=== PATIENT | female | born 1955 | race Asian ===

== ENCOUNTER 2021-05-09 22:57 | Inpatient (IN) | payer OTHER ==
[~2021-05-09] VITALS: Ht 149.9 cm; Wt 44.6 kg
[~2021-05-09 22:57] MED LIST: LAMO100 PO; LEVE500T20 PO
[2021-05-09] MEDS ORDERED: 0.9% SODIUM CHLORIDE 10 ML SYRINGE IVP PRN (23:45)
[2021-05-10 00:08] LABS: GLUCOMETER DEV NAME(LOC) ERT.5; GLUCOSE,POINT OF CARE 125 MG/DL (70-110)
[2021-05-10 00:29] LABS: BASOPHILS % (AUTO) 0.7 % (0.0-2.0); EOSINOPHILS % (AUTO) 2.3 % (1.0-6.0); HEMATOCRIT 36.6 % (36-46); HEMOGLOBIN 12.1 g/dL (12.0-16.0); LYMPHOCYTES # (AUTO) 1.8 K/uL (1.0-4.8); LYMPHOCYTES % (AUTO) 27.9 % (22.0-44.0); MEAN CORPUSCULAR HGB CONC 33.1 G/dL (31.0-37.0); MEAN CORPUSCULAR VOLUME 97 fL (80-100); MONOCYTES # (AUTO) 0.4 K/uL (0.1-1.0); MONOCYTES % (AUTO) 6.2 % (2.0-9.0); NEUTROPHILS # (AUTO) 4.1 K/uL (1.8-7.7); NEUTROPHILS % (AUTO) 62.9 % (40.0-70.0); PLATELET COUNT (AUTO) 299 K/uL (150-450); RED BLOOD CELL COUNT(AUTO) 3.77 MIL/uL (4.00-5.20); RED CELL DISTRIBUTION WIDTH 12.9 % (11.5-14.5)
[2021-05-10 00:49] LABS: B-TYPE NATRIURETIC PEPTIDE 47 pg/mL (0-100); INR 0.9 (0.9-1.1); PROTHROMBIN TIME 10.1 SEC (9.4-11.6)
[2021-05-10 00:52] LABS: ALANINE AMINOTRANSFERASE 17 U/L (12-78); ALBUMIN 3.9 g/dL (3.4-5.0); ALKALINE PHOSPHATASE 89 U/L (46-116); ANION GAP 8 mmol/L (8-16); ASPARTATE AMINOTRANSFERASE 18 U/L (15-37); BILIRUBIN,TOTAL 0.2 mg/dL (0.1-1.0); CARBON DIOXIDE 29 mmol/L (22-29); CHLORIDE 104 mmol/L (98-107); CREATINE KINASE, TOTAL ONLY 71 U/L (26-192); CREATININE 0.78 mg/dL (0.60-1.30); GLOMERULAR FILTR. RATE CALC > 60 mL/min (>60); GLUCOSE,RANDOM 129 mg/dL (70-110); POTASSIUM 3.6 mmol/L (3.5-5.1); SODIUM SERUM 141 mmol/L (136-145); TOTAL PROTEIN, SERUM 7.6 g/dL (6.4-8.2); UREA NITROGEN, BLOOD 10 mg/dL (7-18)
[2021-05-10 00:54] LABS: LACTIC ACID 1.1 mmol/L (0.4-2.0)
[2021-05-10] MEDS ORDERED: MECLIZINE HCL 25 MG TABLET PO ONE (01:30)
[2021-05-10] MEDS ORDERED: CloNIDine HCL 0.1 MG TABLET PO ONE (01:45)
[2021-05-10 01:58] LABS: APPEARANCE,URINE CLEAR (CLEAR); BILIRUBIN,URINE NEGATIVE (NEGATIVE); GLUCOSE, URINE (UA) NEGATIVE (NEGATIVE); KETONES,URINE NEGATIVE (NEGATIVE); LEUKOCYTE ESTERASE ,URINE NEGATIVE (NEGATIVE); NITRATE,URINE NEGATIVE (NEGATIVE); OCCULT BLOOD,URINE NEGATIVE (NEGATIVE); PROTEIN,URINE NEGATIVE (NEGATIVE); UROBILINOGEN,URINE 0.2 mg/dL (<=1.0)
[2021-05-10 02:14] LABS: COVID AG,FIA SOURCE NASOPHARYNGEAL
[2021-05-10 02:32] LABS: AMPHET/METH SCREEN,URINE NEGATIVE (NEGATIVE); BARBITURATE SCREEN, URINE NEGATIVE (NEGATIVE); BENZODIAZEPINES SCREEN,URINE NEGATIVE (NEGATIVE); CANNABINOID SCREEN,URINE NEGATIVE (NEGATIVE); COCAINE SCREEN,URINE NEGATIVE (NEGATIVE); METHADONE SCREEN, URINE NEGATIVE (NEGATIVE); OPIATE SCREEN,URINE NEGATIVE (NEGATIVE)
[2021-05-10 02:43] LABS: PHENCYCLIDINE SCREEN,URINE NEGATIVE (NEGATIVE)
[2021-05-10] MEDS ORDERED: SODIUM CHLORIDE 0.9% 1,000 ML IV SCH (02:45)
[2021-05-10] MEDS ORDERED: HydrALAZINE HCL 20 MG/ML VIAL IVP PRN (02:45)
[2021-05-10] MEDS: LISINOPRIL 10 MG TABLET PO SCH (07:29)
[2021-05-10] MEDS: LevETIRAcetam 500 MG TABLET PO SCH ×2 (08:06→22:03)
[2021-05-10 08:55] VITALS: BP 196/93
[2021-05-10] MEDS: LamoTRIgine 100 MG TABLET PO SCH ×2 (10:09→22:03)
[2021-05-10 12:04] VITALS: BP 138/89
[2021-05-10 15:56] VITALS: BP 147/75
[2021-05-10 20:09] VITALS: BP 108/67
[2021-05-11] VITALS (7 sets, daily range): BP systolic 105–146; BP diastolic 48–90
[2021-05-11] MEDS: LevETIRAcetam 500 MG TABLET PO SCH ×2 (10:19→21:02)
[2021-05-11] MEDS: LISINOPRIL 10 MG TABLET PO SCH (10:19)
[2021-05-11] MEDS: LamoTRIgine 100 MG TABLET PO SCH ×2 (10:20→21:02)
[2021-05-11] MEDS ORDERED: BENZOCAINE/MENTHOL/ZINC CL 20% 11.9 GM GEL TP PRN (20:15)
[2021-05-11] MEDS ORDERED: MECLIZINE HCL 25 MG TABLET PO PRN (21:15)
[2021-05-12 03:57] VITALS: BP 120/53
[2021-05-12 08:07] VITALS: BP 154/82
[2021-05-12] MEDS: LevETIRAcetam 500 MG TABLET PO SCH ×2 (09:34→21:39)
[2021-05-12] MEDS: LamoTRIgine 100 MG TABLET PO SCH ×2 (09:34→21:39)
[2021-05-12] MEDS: LISINOPRIL 10 MG TABLET PO SCH (09:34)
[2021-05-12] MEDS ORDERED: ACETAMINOPHEN 500 MG TABLET PO PRN (11:15)
[2021-05-12 11:41] VITALS: BP 134/64
[2021-05-12 15:53] VITALS: BP 121/58
[2021-05-12 20:04] VITALS: BP 141/67
[2021-05-12] MEDS: DOCUSATE SODIUM 100 MG CAPSULE PO SCH (21:39)
[2021-05-12 23:57] VITALS: BP 113/59
[2021-05-13 04:49] VITALS: BP 124/69
[2021-05-13 07:25] VITALS: BP 135/83
[2021-05-13] MEDS ORDERED: MECL-160 PO (07:26)
[2021-05-13] MEDS ORDERED: DOCU-119 PO (07:26)
[2021-05-13] MEDS ORDERED: LISI-893 PO (07:26)
[2021-05-13] MEDS: DOCUSATE SODIUM 100 MG CAPSULE PO SCH (08:20)
[2021-05-13] MEDS: LISINOPRIL 10 MG TABLET PO SCH (08:20)
[2021-05-13] MEDS: LamoTRIgine 100 MG TABLET PO SCH (08:20)
[2021-05-13] MEDS: LevETIRAcetam 500 MG TABLET PO SCH (08:20)
== END 2021-05-13 11:05 | disposition home health service (06) | DRG 71 ==
LOC: EMS 22:59 → 5S 05-10 08:03
PROVIDERS: ADMIT Internal Medicine Geriatric Medicine; ATTEND Internal Medicine Geriatric Medicine
DX: G93.49 Other encephalopathy (principal); F31.31 Bipolar disorder, current episode depressed, mild; I16.1 Hypertensive emergency; E44.0 Moderate protein-calorie malnutrition; Z68.1 Body mass index [BMI] 19.9 or less, adult; G40.209 Localization-related (focal) (partial) symptomatic epilepsy and epileptic syndromes with complex partial seizures, not intractable, without status epilepticus; G93.0 Cerebral cysts; I10 Essential (primary) hypertension; R73.9 Hyperglycemia, unspecified; R42 Dizziness and giddiness; Z20.822 Contact with and (suspected) exposure to COVID-19; D64.9 Anemia, unspecified; Z91.19 Patient's noncompliance with other medical treatment and regimen; Z96.82 Presence of neurostimulator
CPT/HCPCS: 70450; 71045; 72125; 80053; 81003; 82140; 82550; 82962; 83036; 83605; 83880; 84484; 85025; 85610; 85730; 87040; 87081; 93005; 95816; 97116; 97162; 97530; 99285; J7030; 36415-L1; 36415-TC

== ENCOUNTER 2021-05-16 01:44 | Inpatient (IN) | payer OTHER ==
[~2021-05-16] VITALS: Ht 149.9 cm; Wt 45.5 kg
[~2021-05-16 01:44] MED LIST changes: +DOCU-119 PO; +LISI-893 PO; +MECL-160 PO
[2021-05-16] MEDS ORDERED: ONDANSETRON HCL 4 MG/2 ML VIAL IVP ONE (02:00)
[2021-05-16] MEDS ORDERED: LORazepam 2 MG/ML VIAL IVP ONE (02:00)
[2021-05-16] MEDS ORDERED: SODIUM CHLORIDE 0.9% 500 ML IV ONE ×2 (02:00→02:01)
[2021-05-16] MEDS ORDERED: SCOPOLAMINE HYDROBROMIDE 1 MG/72 HOUR PATCH TD ONE (02:00)
[2021-05-16] MEDS ORDERED: MECLIZINE HCL 25 MG TABLET PO ONE (02:00)
[2021-05-16] MEDS ORDERED: MECLIZINE HCL 25 MG TABLET ONE (02:01)
[2021-05-16 02:27] LABS: HEMATOCRIT 39.5 % (36-46); MEAN CORPUSCULAR HEMOGLOBIN 31.8 pg (26.0-34.0); MEAN CORPUSCULAR HGB CONC 32.9 G/dL (31.0-37.0); MEAN CORPUSCULAR VOLUME 97 fL (80-100); RED BLOOD CELL COUNT(AUTO) 4.09 MIL/uL (4.00-5.20)
[2021-05-16 02:28] LABS: BASOPHILS % (AUTO) 0.4 % (0.0-2.0); EOSINOPHILS % (AUTO) 0.3 % (1.0-6.0); LYMPHOCYTES # (AUTO) 1.4 K/uL (1.0-4.8); LYMPHOCYTES % (AUTO) 15.3 % (22.0-44.0); MONOCYTES # (AUTO) 0.3 K/uL (0.1-1.0); MONOCYTES % (AUTO) 3.9 % (2.0-9.0); NEUTROPHILS # (AUTO) 7.1 K/uL (1.8-7.7); NEUTROPHILS % (AUTO) 80.1 % (40.0-70.0); PLATELET COUNT (AUTO) 318 K/uL (150-450); RED CELL DISTRIBUTION WIDTH 13.1 % (11.5-14.5)
[2021-05-16 02:33] LABS: ANION GAP 8 mmol/L (8-16); CALCIUM, TOTAL 9.5 mg/dL (8.8-10.5); CARBON DIOXIDE 30 mmol/L (22-29); CHLORIDE 103 mmol/L (98-107); CREATININE 0.85 mg/dL (0.60-1.30); GLOMERULAR FILTR. RATE CALC > 60 mL/min (>60); GLUCOSE,RANDOM 143 mg/dL (70-110); POTASSIUM 4.1 mmol/L (3.5-5.1); SODIUM SERUM 141 mmol/L (136-145); UREA NITROGEN, BLOOD 16 mg/dL (7-18)
[2021-05-16] MEDS ORDERED: ONDANSETRON HCL 4 MG/2 ML VIAL IVP PRN ×2 (03:45→09:30)
[2021-05-16] MEDS ORDERED: ACETAMINOPHEN 325 MG TABLET PO PRN ×2 (03:45→09:30)
[2021-05-16] MEDS ORDERED: 0.9% SODIUM CHLORIDE 10 ML SYRINGE IVP PRN (03:45)
[2021-05-16 08:00] VITALS: BP 116/76
[2021-05-16] MEDS ORDERED: MECLIZINE HCL 25 MG TABLET PO PRN (09:30)
[2021-05-16 15:33] VITALS: BP 100/59
[2021-05-16] MEDS: LamoTRIgine 100 MG TABLET PO SCH (20:01)
[2021-05-16] MEDS: DOCUSATE SODIUM 100 MG CAPSULE PO SCH (20:01)
[2021-05-16] MEDS: LevETIRAcetam 500 MG TABLET PO SCH (20:01)
[2021-05-16 20:36] VITALS: BP 115/52
[2021-05-17 05:30] VITALS: BP 126/55
[2021-05-17] MEDS: LamoTRIgine 100 MG TABLET PO SCH ×2 (08:08→20:37)
[2021-05-17] MEDS: DOCUSATE SODIUM 100 MG CAPSULE PO SCH ×2 (08:09→20:37)
[2021-05-17] MEDS: LevETIRAcetam 500 MG TABLET PO SCH ×2 (08:09→20:38)
[2021-05-17 08:19] VITALS: BP 115/74
[2021-05-17] MEDS ORDERED: LISINOPRIL 10 MG TABLET PO SCH (09:00)
[2021-05-17] MEDS ORDERED: ENOXAPARIN SODIUM 40 MG/0.4 ML PF SYRINGE SQ SCH (09:00)
[2021-05-17] MEDS ORDERED: PANTOPRAZOLE SODIUM 40 MG DR TABLET PO SCH (09:00)
[2021-05-17 15:10] LABS: COVID AG,FIA SOURCE NASAL SWAB
== END 2021-05-17 21:10 | DRG 149 ==
LOC: EMS 01:44 → 6N 05:00
PROVIDERS: ADMIT Internal Medicine Geriatric Medicine; ATTEND Internal Medicine Geriatric Medicine
DX: R42 Dizziness and giddiness (principal); F31.31 Bipolar disorder, current episode depressed, mild; R26.9 Unspecified abnormalities of gait and mobility; I10 Essential (primary) hypertension; K59.00 Constipation, unspecified; Z20.822 Contact with and (suspected) exposure to COVID-19; G40.909 Epilepsy, unspecified, not intractable, without status epilepticus; D49.6 Neoplasm of unspecified behavior of brain
CPT/HCPCS: 80048; 85025; 97116; 97162; 97165; 97530; 97535; 99285; J1650; J2060; J2405; J7040

== ENCOUNTER 2021-05-17 21:00 | Inpatient (IN) | payer MEDICARE, MEDICAID ==
[~2021-05-17] VITALS: Ht 149.9 cm; Wt 42.6 kg
[2021-05-17] MEDS ORDERED: HALOPERIDOL 5 MG TABLET PO PRN (21:45)
[2021-05-17] MEDS ORDERED: ZOLPIDEM TARTRATE 10 MG TABLET PO PRN (21:45)
[2021-05-17 21:58] VITALS: BP 141/72
[2021-05-18 06:32] LABS: BASOPHILS % (AUTO) 0.6 % (0.0-2.0); EOSINOPHILS % (AUTO) 1.2 % (1.0-6.0); HEMATOCRIT 35.1 % (36-46); HEMOGLOBIN 11.6 g/dL (12.0-16.0); LYMPHOCYTES # (AUTO) 2.1 K/uL (1.0-4.8); MEAN CORPUSCULAR HEMOGLOBIN 32.1 pg (26.0-34.0); MEAN CORPUSCULAR HGB CONC 33.1 G/dL (31.0-37.0); MEAN CORPUSCULAR VOLUME 97 fL (80-100); MONOCYTES # (AUTO) 0.7 K/uL (0.1-1.0); MONOCYTES % (AUTO) 7.6 % (2.0-9.0); NEUTROPHILS # (AUTO) 6.5 K/uL (1.8-7.7); NEUTROPHILS % (AUTO) 68.6 % (40.0-70.0); PLATELET COUNT (AUTO) 338 K/uL (150-450); RED BLOOD CELL COUNT(AUTO) 3.62 MIL/uL (4.00-5.20); RED CELL DISTRIBUTION WIDTH 12.7 % (11.5-14.5)
[2021-05-18 06:59] LABS: ALANINE AMINOTRANSFERASE 21 U/L (12-78); ALBUMIN 3.2 g/dL (3.4-5.0); ALKALINE PHOSPHATASE 105 U/L (46-116); ANION GAP 7 mmol/L (8-16); ASPARTATE AMINOTRANSFERASE 20 U/L (15-37); BILIRUBIN,TOTAL 0.4 mg/dL (0.1-1.0); CALCIUM, TOTAL 9.4 mg/dL (8.8-10.5); CARBON DIOXIDE 31 mmol/L (22-29); CHLORIDE 98 mmol/L (98-107); CREATININE 0.77 mg/dL (0.60-1.30); GLOMERULAR FILTR. RATE CALC > 60 mL/min (>60); GLUCOSE,RANDOM 103 mg/dL (70-110); SODIUM SERUM 136 mmol/L (136-145); TOTAL PROTEIN, SERUM 7.4 g/dL (6.4-8.2); UREA NITROGEN, BLOOD 10 mg/dL (7-18)
[2021-05-18 08:00] VITALS: BP 138/93
[2021-05-18] MEDS: LamoTRIgine 100 MG TABLET PO SCH ×4 (09:15→17:11)
[2021-05-18] MEDS: LISINOPRIL 10 MG TABLET PO SCH (09:15)
[2021-05-18] MEDS: PANTOPRAZOLE SODIUM 40 MG DR TABLET PO SCH (09:15)
[2021-05-18] MEDS: DOCUSATE SODIUM 100 MG CAPSULE PO SCH ×2 (09:15→17:11)
[2021-05-18] MEDS: LevETIRAcetam 500 MG TABLET PO SCH ×2 (09:15→17:11)
[2021-05-18] MEDS: RisperiDONE 1 MG TABLET PO SCH ×2 (10:50→17:11)
[2021-05-18 16:00] VITALS: BP 98/60
[2021-05-18 19:06] LABS: COVID AG,FIA SOURCE NASAL SWAB
[2021-05-19 00:15] VITALS: BP 119/76
[2021-05-19] MEDS: LORazepam 1 MG TABLET PO PRN (00:20)
[2021-05-19 08:00] VITALS: BP 132/60
[2021-05-19] MEDS: PANTOPRAZOLE SODIUM 40 MG DR TABLET PO SCH (08:23)
[2021-05-19] MEDS: LevETIRAcetam 500 MG TABLET PO SCH ×2 (08:23→16:14)
[2021-05-19] MEDS: DOCUSATE SODIUM 100 MG CAPSULE PO SCH ×2 (08:23→16:14)
[2021-05-19] MEDS: RisperiDONE 1 MG TABLET PO SCH ×2 (08:23→16:14)
[2021-05-19] MEDS: LamoTRIgine 100 MG TABLET PO SCH ×2 (08:23→16:14)
[2021-05-19] MEDS: LISINOPRIL 10 MG TABLET PO SCH (08:23)
[2021-05-19 09:06] VITALS: BP 138/73
[2021-05-19 16:00] VITALS: BP 131/75
[2021-05-20 02:45] VITALS: BP 128/70
[2021-05-20] MEDS: LamoTRIgine 100 MG TABLET PO SCH ×2 (08:19→16:17)
[2021-05-20] MEDS: LISINOPRIL 10 MG TABLET PO SCH (08:19)
[2021-05-20] MEDS: DOCUSATE SODIUM 100 MG CAPSULE PO SCH ×2 (08:19→16:17)
[2021-05-20] MEDS: LevETIRAcetam 500 MG TABLET PO SCH ×2 (08:19→16:17)
[2021-05-20] MEDS: PANTOPRAZOLE SODIUM 40 MG DR TABLET PO SCH (08:19)
[2021-05-20] MEDS: RisperiDONE 1 MG TABLET PO SCH ×2 (08:19→16:17)
[2021-05-20 08:57] VITALS: BP 110/60
[2021-05-20 12:49] LABS: APPEARANCE,URINE CLEAR (CLEAR); BILIRUBIN,URINE NEGATIVE (NEGATIVE); GLUCOSE, URINE (UA) NEGATIVE (NEGATIVE); KETONES,URINE 15 mg/dL (NEGATIVE); LEUKOCYTE ESTERASE ,URINE NEGATIVE (NEGATIVE); NITRATE,URINE NEGATIVE (NEGATIVE); OCCULT BLOOD,URINE NEGATIVE (NEGATIVE); PH,URINE 6.5 (5.0-8.0); PROTEIN,URINE NEGATIVE (NEGATIVE); UROBILINOGEN,URINE 0.2 mg/dL (<=1.0)
[2021-05-20] MEDS ORDERED: HALOPERIDOL 2 MG TABLET PO PRN (14:45)
[2021-05-20 16:00] VITALS: BP 114/69
[2021-05-20] MEDS: MECLIZINE HCL 25 MG TABLET PO PRN (19:49)
[2021-05-21] MEDS ORDERED: HALOPERIDOL LACTATE 5 MG/ML VIAL IM ONE (01:30)
[2021-05-21] MEDS ORDERED: LORazepam 2 MG/ML VIAL IM ONE (01:30)
[2021-05-21] MEDS ORDERED: DiphenhydrAMINE HCL 50 MG/ML VIAL IM ONE (01:30)
[2021-05-21 07:37] LABS: MAGNESIUM 2.4 mg/dL (1.80-2.40); PHOSPHORUS 3.6 mg/dL (2.5-4.9); POTASSIUM 3.9 mmol/L (3.5-5.1)
[2021-05-21 08:26] VITALS: BP 163/80
[2021-05-21 08:45] VITALS: BP 166/84
[2021-05-21 09:00] VITALS: BP_SYST 113; BP_SYST 158; BP_DIAS 62; BP_DIAS 90
[2021-05-21] MEDS: LamoTRIgine 100 MG TABLET PO SCH ×2 (09:09→16:31)
[2021-05-21] MEDS: LevETIRAcetam 500 MG TABLET PO SCH ×2 (09:09→16:32)
[2021-05-21] MEDS: PANTOPRAZOLE SODIUM 40 MG DR TABLET PO SCH (09:10)
[2021-05-21] MEDS: DOCUSATE SODIUM 100 MG CAPSULE PO SCH ×2 (09:10→16:31)
[2021-05-21] MEDS: MULTIVITAMINS WITH MINERALS, THERAPEUTIC TABLET PO SCH (09:10)
[2021-05-21] MEDS: RisperiDONE 1 MG TABLET PO SCH ×2 (09:10→16:32)
[2021-05-21] MEDS: THIAMINE 100 MG TABLET PO SCH (09:10)
[2021-05-21] MEDS: LISINOPRIL 10 MG TABLET PO SCH (09:10)
[2021-05-21 09:30] VITALS: BP 154/71
[2021-05-21 10:00] VITALS: BP 122/66
[2021-05-21] MEDS ORDERED: CloNIDine HCL 0.1 MG TABLET PO PRN (10:15)
[2021-05-21] MEDS: AmLODIPine BESYLATE 5 MG TABLET PO SCH (12:28)
[2021-05-21 16:45] VITALS: BP 114/64
[2021-05-21] MEDS: LORazepam 1 MG TABLET PO PRN (18:02)
[2021-05-21] MEDS: HALOPERIDOL 5 MG TABLET PO PRN (19:14)
[2021-05-22 08:01] VITALS: BP 107/61
[2021-05-22] MEDS: THIAMINE 100 MG TABLET PO SCH (09:17)
[2021-05-22] MEDS: MULTIVITAMINS WITH MINERALS, THERAPEUTIC TABLET PO SCH (09:17)
[2021-05-22] MEDS: PANTOPRAZOLE SODIUM 40 MG DR TABLET PO SCH (09:18)
[2021-05-22] MEDS: LevETIRAcetam 500 MG TABLET PO SCH ×2 (09:18→16:19)
[2021-05-22] MEDS: AmLODIPine BESYLATE 5 MG TABLET PO SCH (09:18)
[2021-05-22] MEDS: RisperiDONE 1 MG TABLET PO SCH ×2 (09:18→16:19)
[2021-05-22] MEDS: DOCUSATE SODIUM 100 MG CAPSULE PO SCH ×2 (09:19→16:19)
[2021-05-22] MEDS: LISINOPRIL 10 MG TABLET PO SCH (09:19)
[2021-05-22 09:20] VITALS: BP 131/65
[2021-05-22] MEDS: LamoTRIgine 100 MG TABLET PO SCH ×2 (09:34→16:19)
[2021-05-22 16:00] VITALS: BP 116/61
[2021-05-23 01:48] VITALS: BP 115/60
[2021-05-23 03:30] VITALS: BP 129/80
[2021-05-23] MEDS: HALOPERIDOL 5 MG TABLET PO PRN (03:39)
[2021-05-23] MEDS: LORazepam 1 MG TABLET PO PRN (03:39)
[2021-05-23 08:00] VITALS: BP 128/70
[2021-05-23] MEDS: LevETIRAcetam 500 MG TABLET PO SCH ×2 (08:48→16:34)
[2021-05-23] MEDS: LamoTRIgine 100 MG TABLET PO SCH ×2 (08:48→16:34)
[2021-05-23] MEDS: PANTOPRAZOLE SODIUM 40 MG DR TABLET PO SCH (08:48)
[2021-05-23] MEDS: MULTIVITAMINS WITH MINERALS, THERAPEUTIC TABLET PO SCH (08:48)
[2021-05-23] MEDS: THIAMINE 100 MG TABLET PO SCH (08:48)
[2021-05-23] MEDS: AmLODIPine BESYLATE 5 MG TABLET PO SCH (08:48)
[2021-05-23] MEDS: LISINOPRIL 10 MG TABLET PO SCH (08:48)
[2021-05-23] MEDS: DOCUSATE SODIUM 100 MG CAPSULE PO SCH ×2 (08:48→16:34)
[2021-05-23] MEDS: RisperiDONE 1 MG TABLET PO SCH ×2 (08:48→16:42)
[2021-05-24 00:40] VITALS: BP 136/80
[2021-05-24] MEDS: LORazepam 1 MG TABLET PO PRN (00:49)
[2021-05-24] MEDS: HALOPERIDOL 5 MG TABLET PO PRN ×2 (00:50→18:47)
[2021-05-24] MEDS: AmLODIPine BESYLATE 5 MG TABLET PO SCH ×2 (09:00→09:21)
[2021-05-24] MEDS: LISINOPRIL 10 MG TABLET PO SCH ×2 (09:00→09:22)
[2021-05-24] MEDS: DOCUSATE SODIUM 100 MG CAPSULE PO SCH ×2 (09:21→16:43)
[2021-05-24] MEDS: LevETIRAcetam 500 MG TABLET PO SCH ×2 (09:22→16:44)
[2021-05-24] MEDS: MULTIVITAMINS WITH MINERALS, THERAPEUTIC TABLET PO SCH (09:22)
[2021-05-24] MEDS: PANTOPRAZOLE SODIUM 40 MG DR TABLET PO SCH (09:22)
[2021-05-24] MEDS: LamoTRIgine 100 MG TABLET PO SCH ×2 (09:22→16:43)
[2021-05-24] MEDS: RisperiDONE 1 MG TABLET PO SCH (09:22)
[2021-05-24] MEDS: THIAMINE 100 MG TABLET PO SCH (09:22)
[2021-05-24 14:15] VITALS: BP 152/71
[2021-05-24 21:22] LABS: COVID AG,FIA SOURCE NASAL SWAB
[2021-05-25 00:30] VITALS: BP 140/78
[2021-05-25] MEDS: HALOPERIDOL 5 MG TABLET PO PRN (01:13)
[2021-05-25] MEDS: LORazepam 1 MG TABLET PO PRN (01:13)
[2021-05-25 08:05] VITALS: BP 142/62
[2021-05-25] MEDS: PANTOPRAZOLE SODIUM 40 MG DR TABLET PO SCH (08:51)
[2021-05-25] MEDS: THIAMINE 100 MG TABLET PO SCH (08:51)
[2021-05-25] MEDS: DOCUSATE SODIUM 100 MG CAPSULE PO SCH ×2 (08:51→17:24)
[2021-05-25] MEDS: LISINOPRIL 10 MG TABLET PO SCH (08:51)
[2021-05-25] MEDS: AmLODIPine BESYLATE 5 MG TABLET PO SCH (08:51)
[2021-05-25] MEDS: LevETIRAcetam 500 MG TABLET PO SCH ×2 (08:51→17:24)
[2021-05-25] MEDS: LamoTRIgine 100 MG TABLET PO SCH ×2 (08:52→17:24)
[2021-05-25] MEDS: MULTIVITAMINS WITH MINERALS, THERAPEUTIC TABLET PO SCH (08:52)
[2021-05-25 13:26] VITALS: BP 167/78
[2021-05-25 17:09] VITALS: BP 151/68
[2021-05-26] MEDS: LORazepam 1 MG TABLET PO PRN (07:35)
[2021-05-26] MEDS: HALOPERIDOL 5 MG TABLET PO PRN (07:35)
[2021-05-26] MEDS: DOCUSATE SODIUM 100 MG CAPSULE PO SCH ×2 (08:32→17:25)
[2021-05-26] MEDS: PANTOPRAZOLE SODIUM 40 MG DR TABLET PO SCH (08:32)
[2021-05-26] MEDS: LamoTRIgine 100 MG TABLET PO SCH ×2 (08:32→17:25)
[2021-05-26] MEDS: LevETIRAcetam 500 MG TABLET PO SCH ×2 (08:32→17:25)
[2021-05-26] MEDS: MULTIVITAMINS WITH MINERALS, THERAPEUTIC TABLET PO SCH (08:32)
[2021-05-26] MEDS: THIAMINE 100 MG TABLET PO SCH (08:32)
[2021-05-26] MEDS: AmLODIPine BESYLATE 5 MG TABLET PO SCH (08:33)
[2021-05-26] MEDS: LISINOPRIL 10 MG TABLET PO SCH (08:33)
[2021-05-26 17:23] VITALS: BP 143/73
[2021-05-27] MEDS: HALOPERIDOL 5 MG TABLET PO PRN ×3 (03:16→15:46)
[2021-05-27] MEDS: LORazepam 1 MG TABLET PO PRN ×2 (03:16→09:33)
[2021-05-27 08:33] VITALS: BP 119/64
[2021-05-27] MEDS: LISINOPRIL 10 MG TABLET PO SCH (09:32)
[2021-05-27] MEDS: PANTOPRAZOLE SODIUM 40 MG DR TABLET PO SCH (09:32)
[2021-05-27] MEDS: DOCUSATE SODIUM 100 MG CAPSULE PO SCH ×2 (09:32→15:55)
[2021-05-27] MEDS: LamoTRIgine 100 MG TABLET PO SCH ×2 (09:32→15:55)
[2021-05-27] MEDS: MULTIVITAMINS WITH MINERALS, THERAPEUTIC TABLET PO SCH (09:32)
[2021-05-27] MEDS: AmLODIPine BESYLATE 5 MG TABLET PO SCH (09:32)
[2021-05-27] MEDS: THIAMINE 100 MG TABLET PO SCH (09:32)
[2021-05-27] MEDS: LevETIRAcetam 500 MG TABLET PO SCH ×2 (09:32→15:55)
[2021-05-27] MEDS: ARIPiprazole 10 MG TABLET PO SCH (12:34)
[2021-05-27 16:54] VITALS: BP 100/63
[2021-05-27] MEDS: ACETAMINOPHEN 325 MG TABLET PO PRN (21:33)
[2021-05-28] MEDS: HALOPERIDOL 5 MG TABLET PO PRN (05:39)
[2021-05-28] MEDS: LORazepam 1 MG TABLET PO PRN (05:39)
[2021-05-28 08:03] VITALS: BP 105/61
[2021-05-28] MEDS: MULTIVITAMINS WITH MINERALS, THERAPEUTIC TABLET PO SCH (08:49)
[2021-05-28] MEDS: PANTOPRAZOLE SODIUM 40 MG DR TABLET PO SCH (08:49)
[2021-05-28] MEDS: LISINOPRIL 10 MG TABLET PO SCH (08:49)
[2021-05-28] MEDS: LamoTRIgine 100 MG TABLET PO SCH ×2 (08:49→16:19)
[2021-05-28] MEDS: AmLODIPine BESYLATE 5 MG TABLET PO SCH (08:49)
[2021-05-28] MEDS: ARIPiprazole 10 MG TABLET PO SCH (08:49)
[2021-05-28] MEDS: DOCUSATE SODIUM 100 MG CAPSULE PO SCH ×2 (08:49→16:18)
[2021-05-28] MEDS: THIAMINE 100 MG TABLET PO SCH (08:49)
[2021-05-28] MEDS: LevETIRAcetam 500 MG TABLET PO SCH ×2 (08:49→16:18)
[2021-05-28 16:00] VITALS: BP 126/62
[2021-05-29] MEDS: LORazepam 1 MG TABLET PO PRN (00:59)
[2021-05-29] MEDS: HALOPERIDOL 5 MG TABLET PO PRN (01:00)
[2021-05-29 01:48] VITALS: BP 129/76
[2021-05-29] MEDS: LamoTRIgine 100 MG TABLET PO SCH ×2 (08:09→16:33)
[2021-05-29] MEDS: AmLODIPine BESYLATE 5 MG TABLET PO SCH (08:09)
[2021-05-29] MEDS: THIAMINE 100 MG TABLET PO SCH (08:09)
[2021-05-29] MEDS: PANTOPRAZOLE SODIUM 40 MG DR TABLET PO SCH (08:09)
[2021-05-29] MEDS: LevETIRAcetam 500 MG TABLET PO SCH ×2 (08:09→16:34)
[2021-05-29] MEDS: LISINOPRIL 10 MG TABLET PO SCH (08:09)
[2021-05-29] MEDS: ARIPiprazole 10 MG TABLET PO SCH (08:09)
[2021-05-29] MEDS: DOCUSATE SODIUM 100 MG CAPSULE PO SCH ×2 (08:09→16:33)
[2021-05-29] MEDS: MULTIVITAMINS WITH MINERALS, THERAPEUTIC TABLET PO SCH (08:09)
[2021-05-29 08:45] VITALS: BP 99/58
[2021-05-29 16:30] VITALS: BP 94/59
[2021-05-30] MEDS: LORazepam 1 MG TABLET PO PRN (00:15)
[2021-05-30] MEDS: HALOPERIDOL 5 MG TABLET PO PRN (00:15)
[2021-05-30 00:19] VITALS: BP 144/79
[2021-05-30 08:25] VITALS: BP 103/53
[2021-05-30] MEDS: THIAMINE 100 MG TABLET PO SCH (09:23)
[2021-05-30] MEDS: DOCUSATE SODIUM 100 MG CAPSULE PO SCH ×2 (09:23→16:38)
[2021-05-30] MEDS: ARIPiprazole 10 MG TABLET PO SCH (09:23)
[2021-05-30] MEDS: LamoTRIgine 100 MG TABLET PO SCH ×2 (09:23→16:38)
[2021-05-30] MEDS: LevETIRAcetam 500 MG TABLET PO SCH ×2 (09:23→16:37)
[2021-05-30] MEDS: MULTIVITAMINS WITH MINERALS, THERAPEUTIC TABLET PO SCH (09:23)
[2021-05-30] MEDS: AmLODIPine BESYLATE 5 MG TABLET PO SCH (09:23)
[2021-05-30] MEDS: LISINOPRIL 10 MG TABLET PO SCH (09:23)
[2021-05-30] MEDS: PANTOPRAZOLE SODIUM 40 MG DR TABLET PO SCH (09:23)
[2021-05-30 18:05] VITALS: BP 127/62
[2021-05-31 08:10] VITALS: BP 124/58
[2021-05-31] MEDS: PANTOPRAZOLE SODIUM 40 MG DR TABLET PO SCH (09:01)
[2021-05-31] MEDS: DOCUSATE SODIUM 100 MG CAPSULE PO SCH ×2 (09:01→16:27)
[2021-05-31] MEDS: THIAMINE 100 MG TABLET PO SCH (09:01)
[2021-05-31] MEDS: MULTIVITAMINS WITH MINERALS, THERAPEUTIC TABLET PO SCH (09:01)
[2021-05-31] MEDS: LISINOPRIL 10 MG TABLET PO SCH (09:01)
[2021-05-31] MEDS: AmLODIPine BESYLATE 5 MG TABLET PO SCH (09:02)
[2021-05-31] MEDS: LamoTRIgine 100 MG TABLET PO SCH ×2 (09:02→16:27)
[2021-05-31] MEDS: ARIPiprazole 10 MG TABLET PO SCH (09:02)
[2021-05-31] MEDS: LevETIRAcetam 500 MG TABLET PO SCH ×2 (09:03→16:27)
[2021-05-31 09:22] LABS: COVID AG,FIA SOURCE NASAL SWAB
[2021-05-31] MEDS: MECLIZINE HCL 25 MG TABLET PO PRN (14:39)
[2021-05-31 16:00] VITALS: BP 103/61
[2021-05-31] MEDS: LORazepam 1 MG TABLET PO PRN (16:27)
[2021-06-01] MEDS: LORazepam 1 MG TABLET PO PRN (04:18)
[2021-06-01] MEDS: HALOPERIDOL 5 MG TABLET PO PRN (04:18)
[2021-06-01 04:22] VITALS: BP 128/73
[2021-06-01 08:20] VITALS: BP 111/62
[2021-06-01] MEDS: ARIPiprazole 10 MG TABLET PO SCH (08:49)
[2021-06-01] MEDS: DOCUSATE SODIUM 100 MG CAPSULE PO SCH ×2 (08:49→16:21)
[2021-06-01] MEDS: THIAMINE 100 MG TABLET PO SCH (08:49)
[2021-06-01] MEDS: MULTIVITAMINS WITH MINERALS, THERAPEUTIC TABLET PO SCH (08:49)
[2021-06-01] MEDS: AmLODIPine BESYLATE 5 MG TABLET PO SCH (08:49)
[2021-06-01] MEDS: LamoTRIgine 100 MG TABLET PO SCH ×2 (08:50→16:21)
[2021-06-01] MEDS: PANTOPRAZOLE SODIUM 40 MG DR TABLET PO SCH (08:50)
[2021-06-01] MEDS: LevETIRAcetam 500 MG TABLET PO SCH ×2 (08:50→16:21)
[2021-06-01] MEDS: LISINOPRIL 10 MG TABLET PO SCH (08:50)
[2021-06-01 16:04] VITALS: BP 121/77
[2021-06-02] MEDS: PANTOPRAZOLE SODIUM 40 MG DR TABLET PO SCH (08:20)
[2021-06-02] MEDS: THIAMINE 100 MG TABLET PO SCH (08:20)
[2021-06-02] MEDS: MULTIVITAMINS WITH MINERALS, THERAPEUTIC TABLET PO SCH (08:20)
[2021-06-02] MEDS: ARIPiprazole 10 MG TABLET PO SCH (08:20)
[2021-06-02] MEDS: AmLODIPine BESYLATE 5 MG TABLET PO SCH (08:20)
[2021-06-02] MEDS: LamoTRIgine 100 MG TABLET PO SCH ×2 (08:20→16:12)
[2021-06-02] MEDS: DOCUSATE SODIUM 100 MG CAPSULE PO SCH ×2 (08:20→16:12)
[2021-06-02] MEDS: LISINOPRIL 10 MG TABLET PO SCH (08:20)
[2021-06-02] MEDS: LevETIRAcetam 500 MG TABLET PO SCH ×2 (08:21→16:12)
[2021-06-02 08:48] VITALS: BP 100/83
[2021-06-02 16:21] VITALS: BP 115/74
[2021-06-03 08:09] VITALS: BP 106/51
[2021-06-03] MEDS: AmLODIPine BESYLATE 5 MG TABLET PO SCH (08:57)
[2021-06-03] MEDS: MULTIVITAMINS WITH MINERALS, THERAPEUTIC TABLET PO SCH (08:58)
[2021-06-03] MEDS: LISINOPRIL 10 MG TABLET PO SCH (08:58)
[2021-06-03] MEDS: ARIPiprazole 10 MG TABLET PO SCH (08:58)
[2021-06-03] MEDS: LevETIRAcetam 500 MG TABLET PO SCH ×2 (08:58→16:03)
[2021-06-03] MEDS: THIAMINE 100 MG TABLET PO SCH (08:58)
[2021-06-03] MEDS: DOCUSATE SODIUM 100 MG CAPSULE PO SCH ×2 (08:58→16:02)
[2021-06-03] MEDS: LamoTRIgine 100 MG TABLET PO SCH ×2 (08:58→16:03)
[2021-06-03] MEDS: PANTOPRAZOLE SODIUM 40 MG DR TABLET PO SCH (08:58)
[2021-06-03 16:00] VITALS: BP 111/68
[2021-06-04 01:45] VITALS: BP 170/75
[2021-06-04] MEDS: LORazepam 1 MG TABLET PO PRN (02:08)
[2021-06-04 08:02] VITALS: BP 118/57
[2021-06-04] MEDS: MULTIVITAMINS WITH MINERALS, THERAPEUTIC TABLET PO SCH (08:28)
[2021-06-04] MEDS: ARIPiprazole 10 MG TABLET PO SCH (08:28)
[2021-06-04] MEDS: AmLODIPine BESYLATE 5 MG TABLET PO SCH (08:28)
[2021-06-04] MEDS: PANTOPRAZOLE SODIUM 40 MG DR TABLET PO SCH (08:28)
[2021-06-04] MEDS: LevETIRAcetam 500 MG TABLET PO SCH ×2 (08:28→16:29)
[2021-06-04] MEDS: THIAMINE 100 MG TABLET PO SCH (08:28)
[2021-06-04] MEDS: LISINOPRIL 10 MG TABLET PO SCH (08:28)
[2021-06-04] MEDS: LamoTRIgine 100 MG TABLET PO SCH ×2 (08:28→16:29)
[2021-06-04] MEDS: DOCUSATE SODIUM 100 MG CAPSULE PO SCH ×2 (08:28→16:28)
[2021-06-05] MEDS: MULTIVITAMINS WITH MINERALS, THERAPEUTIC TABLET PO SCH (08:33)
[2021-06-05] MEDS: THIAMINE 100 MG TABLET PO SCH (08:33)
[2021-06-05] MEDS: ARIPiprazole 10 MG TABLET PO SCH (08:33)
[2021-06-05] MEDS: LISINOPRIL 10 MG TABLET PO SCH (08:33)
[2021-06-05] MEDS: AmLODIPine BESYLATE 5 MG TABLET PO SCH (08:33)
[2021-06-05] MEDS: LevETIRAcetam 500 MG TABLET PO SCH ×2 (08:34→16:07)
[2021-06-05] MEDS: PANTOPRAZOLE SODIUM 40 MG DR TABLET PO SCH (08:34)
[2021-06-05] MEDS: DOCUSATE SODIUM 100 MG CAPSULE PO SCH ×2 (08:34→16:07)
[2021-06-05] MEDS: LamoTRIgine 100 MG TABLET PO SCH ×2 (08:34→16:07)
[2021-06-05 09:49] VITALS: BP 107/52
[2021-06-05 16:32] VITALS: BP 136/60
[2021-06-06] MEDS: LevETIRAcetam 500 MG TABLET PO SCH ×2 (08:22→16:07)
[2021-06-06] MEDS: THIAMINE 100 MG TABLET PO SCH (08:22)
[2021-06-06] MEDS: AmLODIPine BESYLATE 5 MG TABLET PO SCH (08:22)
[2021-06-06] MEDS: DOCUSATE SODIUM 100 MG CAPSULE PO SCH ×2 (08:22→16:07)
[2021-06-06] MEDS: ARIPiprazole 10 MG TABLET PO SCH (08:22)
[2021-06-06] MEDS: LISINOPRIL 10 MG TABLET PO SCH (08:22)
[2021-06-06] MEDS: LamoTRIgine 100 MG TABLET PO SCH ×2 (08:22→16:07)
[2021-06-06] MEDS: PANTOPRAZOLE SODIUM 40 MG DR TABLET PO SCH (08:23)
[2021-06-06] MEDS: MULTIVITAMINS WITH MINERALS, THERAPEUTIC TABLET PO SCH (08:23)
[2021-06-06 08:56] VITALS: BP 109/69
[2021-06-06] MEDS: ACETAMINOPHEN 325 MG TABLET PO PRN (14:13)
[2021-06-06 16:31] VITALS: BP 112/70
[2021-06-06] MEDS: MECLIZINE HCL 25 MG TABLET PO PRN (20:54)
[2021-06-07 08:02] VITALS: BP 121/83
[2021-06-07] MEDS: MULTIVITAMINS WITH MINERALS, THERAPEUTIC TABLET PO SCH (08:37)
[2021-06-07] MEDS: LevETIRAcetam 500 MG TABLET PO SCH ×2 (08:37→16:14)
[2021-06-07] MEDS: PANTOPRAZOLE SODIUM 40 MG DR TABLET PO SCH (08:37)
[2021-06-07] MEDS: DOCUSATE SODIUM 100 MG CAPSULE PO SCH ×2 (08:37→16:14)
[2021-06-07] MEDS: LISINOPRIL 10 MG TABLET PO SCH (08:37)
[2021-06-07] MEDS: AmLODIPine BESYLATE 5 MG TABLET PO SCH (08:37)
[2021-06-07] MEDS: LamoTRIgine 100 MG TABLET PO SCH ×2 (08:37→16:14)
[2021-06-07] MEDS: ARIPiprazole 10 MG TABLET PO SCH (08:37)
[2021-06-07] MEDS: THIAMINE 100 MG TABLET PO SCH (08:37)
[2021-06-07 13:38] LABS: COVID AG,FIA SOURCE NASOPHARYNGEAL
[2021-06-07 17:11] VITALS: BP 125/60
[2021-06-08] MEDS: MULTIVITAMINS WITH MINERALS, THERAPEUTIC TABLET PO SCH (08:46)
[2021-06-08] MEDS: THIAMINE 100 MG TABLET PO SCH (08:46)
[2021-06-08] MEDS: LevETIRAcetam 500 MG TABLET PO SCH ×2 (08:46→16:34)
[2021-06-08] MEDS: PANTOPRAZOLE SODIUM 40 MG DR TABLET PO SCH (08:46)
[2021-06-08] MEDS: ARIPiprazole 10 MG TABLET PO SCH (08:46)
[2021-06-08] MEDS: LISINOPRIL 10 MG TABLET PO SCH (08:46)
[2021-06-08] MEDS: DOCUSATE SODIUM 100 MG CAPSULE PO SCH ×2 (08:46→16:34)
[2021-06-08] MEDS: AmLODIPine BESYLATE 5 MG TABLET PO SCH (08:46)
[2021-06-08] MEDS: LamoTRIgine 100 MG TABLET PO SCH ×2 (08:46→16:34)
[2021-06-08 08:56] VITALS: BP 111/56
[2021-06-08 16:36] VITALS: BP 99/69
[2021-06-09 08:43] VITALS: BP 115/46
[2021-06-09] MEDS: THIAMINE 100 MG TABLET PO SCH (09:04)
[2021-06-09] MEDS: LevETIRAcetam 500 MG TABLET PO SCH ×2 (09:04→16:17)
[2021-06-09] MEDS: DOCUSATE SODIUM 100 MG CAPSULE PO SCH ×2 (09:04→16:17)
[2021-06-09] MEDS: PANTOPRAZOLE SODIUM 40 MG DR TABLET PO SCH (09:05)
[2021-06-09] MEDS: LamoTRIgine 100 MG TABLET PO SCH ×2 (09:05→16:17)
[2021-06-09] MEDS: MULTIVITAMINS WITH MINERALS, THERAPEUTIC TABLET PO SCH (09:05)
[2021-06-09] MEDS: LISINOPRIL 10 MG TABLET PO SCH (09:05)
[2021-06-09] MEDS: ARIPiprazole 10 MG TABLET PO SCH (09:05)
[2021-06-09] MEDS: AmLODIPine BESYLATE 5 MG TABLET PO SCH (09:05)
[2021-06-09 16:19] VITALS: BP 102/58
[2021-06-09] MEDS: MECLIZINE HCL 25 MG TABLET PO PRN (19:48)
[2021-06-10] MEDS: LevETIRAcetam 500 MG TABLET PO SCH ×2 (08:42→16:05)
[2021-06-10] MEDS: ARIPiprazole 10 MG TABLET PO SCH (08:42)
[2021-06-10] MEDS: AmLODIPine BESYLATE 5 MG TABLET PO SCH (08:43)
[2021-06-10] MEDS: PANTOPRAZOLE SODIUM 40 MG DR TABLET PO SCH (08:43)
[2021-06-10] MEDS: LISINOPRIL 10 MG TABLET PO SCH (08:43)
[2021-06-10] MEDS: MULTIVITAMINS WITH MINERALS, THERAPEUTIC TABLET PO SCH (08:43)
[2021-06-10] MEDS: DOCUSATE SODIUM 100 MG CAPSULE PO SCH ×2 (08:43→16:04)
[2021-06-10] MEDS: LamoTRIgine 100 MG TABLET PO SCH ×2 (08:43→16:04)
[2021-06-10] MEDS: THIAMINE 100 MG TABLET PO SCH (08:43)
[2021-06-10 12:07] VITALS: BP 106/72
[2021-06-10 17:00] VITALS: BP 116/60
[2021-06-11] MEDS: PANTOPRAZOLE SODIUM 40 MG DR TABLET PO SCH (08:40)
[2021-06-11] MEDS: DOCUSATE SODIUM 100 MG CAPSULE PO SCH ×2 (08:40→16:27)
[2021-06-11] MEDS: ARIPiprazole 10 MG TABLET PO SCH (08:40)
[2021-06-11] MEDS: LISINOPRIL 10 MG TABLET PO SCH (08:40)
[2021-06-11] MEDS: LamoTRIgine 100 MG TABLET PO SCH ×2 (08:41→16:36)
[2021-06-11] MEDS: THIAMINE 100 MG TABLET PO SCH (08:41)
[2021-06-11] MEDS: AmLODIPine BESYLATE 5 MG TABLET PO SCH (08:41)
[2021-06-11] MEDS: LevETIRAcetam 500 MG TABLET PO SCH ×2 (08:41→16:27)
[2021-06-11] MEDS: MULTIVITAMINS WITH MINERALS, THERAPEUTIC TABLET PO SCH (08:41)
[2021-06-11] MEDS: SIMETHICONE 80 MG CHEWABLE TABLET CHEW PRN (09:47)
[2021-06-11 12:25] VITALS: BP 100/65
[2021-06-11 16:30] VITALS: BP 100/68
[2021-06-11] MEDS: MECLIZINE HCL 25 MG TABLET PO PRN (17:48)
[2021-06-12] MEDS: LamoTRIgine 100 MG TABLET PO SCH ×2 (08:34→17:02)
[2021-06-12] MEDS: LISINOPRIL 10 MG TABLET PO SCH (08:34)
[2021-06-12] MEDS: DOCUSATE SODIUM 100 MG CAPSULE PO SCH ×2 (08:34→17:01)
[2021-06-12] MEDS: PANTOPRAZOLE SODIUM 40 MG DR TABLET PO SCH (08:34)
[2021-06-12] MEDS: ARIPiprazole 10 MG TABLET PO SCH (08:34)
[2021-06-12] MEDS: AmLODIPine BESYLATE 5 MG TABLET PO SCH (08:34)
[2021-06-12] MEDS: MULTIVITAMINS WITH MINERALS, THERAPEUTIC TABLET PO SCH (08:34)
[2021-06-12] MEDS: THIAMINE 100 MG TABLET PO SCH (08:34)
[2021-06-12] MEDS: LevETIRAcetam 500 MG TABLET PO SCH ×2 (08:35→17:02)
[2021-06-12 10:36] VITALS: BP 124/77
[2021-06-12] MEDS: SIMETHICONE 80 MG CHEWABLE TABLET CHEW PRN (13:17)
[2021-06-12] MEDS: MECLIZINE HCL 25 MG TABLET PO PRN (15:15)
[2021-06-12 16:21] VITALS: BP 116/71
[2021-06-13 08:00] VITALS: BP 112/75
[2021-06-13] MEDS: AmLODIPine BESYLATE 5 MG TABLET PO SCH (09:36)
[2021-06-13] MEDS: MULTIVITAMINS WITH MINERALS, THERAPEUTIC TABLET PO SCH (09:36)
[2021-06-13] MEDS: LISINOPRIL 10 MG TABLET PO SCH (09:36)
[2021-06-13] MEDS: ARIPiprazole 10 MG TABLET PO SCH (09:36)
[2021-06-13] MEDS: DOCUSATE SODIUM 100 MG CAPSULE PO SCH ×2 (09:36→16:24)
[2021-06-13] MEDS: THIAMINE 100 MG TABLET PO SCH (09:36)
[2021-06-13] MEDS: PANTOPRAZOLE SODIUM 40 MG DR TABLET PO SCH (09:36)
[2021-06-13] MEDS: LamoTRIgine 100 MG TABLET PO SCH ×2 (09:36→16:25)
[2021-06-13] MEDS: LevETIRAcetam 500 MG TABLET PO SCH ×2 (09:37→16:25)
[2021-06-13 16:19] VITALS: BP 100/68
[2021-06-14 08:28] LABS: COVID AG,FIA SOURCE NASAL SWAB
[2021-06-14] MEDS: DOCUSATE SODIUM 100 MG CAPSULE PO SCH (09:12)
[2021-06-14] MEDS: THIAMINE 100 MG TABLET PO SCH (09:12)
[2021-06-14] MEDS: LISINOPRIL 10 MG TABLET PO SCH (09:12)
[2021-06-14] MEDS: MULTIVITAMINS WITH MINERALS, THERAPEUTIC TABLET PO SCH (09:12)
[2021-06-14] MEDS: LamoTRIgine 100 MG TABLET PO SCH (09:12)
[2021-06-14] MEDS: PANTOPRAZOLE SODIUM 40 MG DR TABLET PO SCH (09:12)
[2021-06-14] MEDS: LevETIRAcetam 500 MG TABLET PO SCH (09:12)
[2021-06-14] MEDS: ARIPiprazole 10 MG TABLET PO SCH (09:12)
[2021-06-14] MEDS: AmLODIPine BESYLATE 5 MG TABLET PO SCH (09:12)
[2021-06-14 09:48] VITALS: BP 164/74
[2021-06-14] MEDS ORDERED: LISI-893 PO (10:06)
[2021-06-14] MEDS ORDERED: AMLO-257 PO (10:06)
[2021-06-14] MEDS ORDERED: LAMO100 PO (10:06)
[2021-06-14] MEDS ORDERED: DOCU-270 PO (10:06)
[2021-06-14] MEDS ORDERED: MULT-1239 PO (10:08)
[2021-06-14] MEDS ORDERED: THIA100T80 PO (10:08)
[2021-06-14] MEDS ORDERED: PANT-31 PO (10:08)
[2021-06-14] MEDS ORDERED: ARIP10TA38 PO (12:07)
[2021-06-14] MEDS: SIMETHICONE 80 MG CHEWABLE TABLET CHEW PRN (13:06)
[2021-06-14 16:20] VITALS: BP 134/82
[2021-06-14] MEDS ORDERED: LamoTRIgine 100 MG TABLET PO SCH (17:00)
== END 2021-06-14 16:45 | disposition home or self-care (01) | DRG 885 ==
LOC: 3EI 21:00
PROVIDERS: ADMIT Psychiatry & Neurology Psychiatry; ATTEND Psychiatry & Neurology Psychiatry
DX: F31.5 Bipolar disorder, current episode depressed, severe, with psychotic features (principal); R45.851 Suicidal ideations; Z20.822 Contact with and (suspected) exposure to COVID-19; F41.0 Panic disorder [episodic paroxysmal anxiety]; R42 Dizziness and giddiness; K59.00 Constipation, unspecified; G40.909 Epilepsy, unspecified, not intractable, without status epilepticus; I10 Essential (primary) hypertension; Z91.81 History of falling; Z59.00 Homelessness unspecified; Z79.899 Other long term (current) drug therapy
CPT/HCPCS: 80053; 81003; 83735; 84100; 84132; 85025; 87081; 97116; 97165; 97530; 97535; J1200; J1630; J2060

== ENCOUNTER 2022-07-01 14:07 | Emergency (ER) | payer MEDICARE, OTHER ==
[~2022-07-01] VITALS: Ht 149.9 cm; Wt 45.5 kg
[~2022-07-01 14:07] MED LIST changes: +AMLO-257 PO; +ARIP10TA38 PO; -DOCU-119 PO; +DOCU-385 PO; -MECL-160 PO; +MULT-1239 PO; +PANT-31 PO; +THIA100T80 PO
[2022-07-01] MEDS ORDERED: LORazepam 0.5 MG TABLET PO ONE (16:15)
[2022-07-01 16:39] VITALS: BP 146/84
== END 2022-07-01 16:50 | disposition home or self-care (01) ==
LOC: EMS 14:14
DX: F41.9 Anxiety disorder, unspecified (principal); R56.9 Unspecified convulsions; I10 Essential (primary) hypertension; Z98.890 Other specified postprocedural states
CPT/HCPCS: 99283

== ENCOUNTER 2025-01-12 10:23 | Emergency (ER) | payer MEDICARE, OTHER ==
[~2025-01-12] VITALS: Ht 149.9 cm; Wt 43.6 kg
[~2025-01-12 10:23] MED LIST changes: +LAMO-24 PO; -LAMO100 PO; +LEVE-71 PO; -LEVE500T20 PO
[2025-01-12 10:31] VITALS: TEMP 98.7
[2025-01-12] MEDS: GENTAMICIN SULFATE 0.1% 15 GM OINTMENT TP ONE (13:10)
[2025-01-12] MEDS: SULFACETAMIDE SODIUM 10% 15 ML OPHTHALMIC SOLUTION OD ONE (13:11)
[2025-01-12 13:15] VITALS: BP 140/80; PULSE 90; RESP 18; O2SAT 99
== END 2025-01-12 13:46 | disposition home or self-care (01) ==
LOC: EMS 10:31
DX: H00.011 Hordeolum externum right upper eyelid (principal); G40.909 Epilepsy, unspecified, not intractable, without status epilepticus; I10 Essential (primary) hypertension; Z98.890 Other specified postprocedural states; Z79.899 Other long term (current) drug therapy
CPT/HCPCS: 99283